=== PATIENT | female | born 1975 | race Caucasian/White ===

== ENCOUNTER 2017-07-23 10:05 | Emergency (ER) | payer MEDICARE, MEDICAID ==
[2017-07-23] MEDS ORDERED: SULFAMETHOXAZOLE/TRIMETHOPRIM 800-160 MG TABLET PO ONE (10:25)
--- NOTE | 2017-07-23 10:37 | ER Document Report ---
HPI - HPI Patient complains to provider of: Abscess Quality of pain: Achy Pain Level: 2 Context: Patient complains of an abscess to the left lower abdominal area for the past 4 days. Patient states area opened up and started to drain a few days ago. Patient denies any fever. Patient denies any history of MRSA Associated Symptoms: denies: Fever, Nausea Exacerbated by: Denies Relieved by: Denies Similar symptoms previously: No Recently seen / treated by doctor: No - ROS ROS below otherwise negative: Yes Systems Reviewed and Negative: Yes All other systems reviewed and negative - CONSTITUTIONAL Constitutional: DENIES: Fever, Chills - REPRODUCTIVE Reproductive: DENIES: : - DERM Notes: Abdominal abscess Past Medical History - General Information source: Patient - Social History Smoking Status: Current Every Day Smoker Frequency of alcohol use: None Drug Abuse: None Occupation: None Lives with: Family Family History: None - Past Medical History Cardiac Medical History: Reports: Hx Hypertension Endocrine Medical History: Reports: Hx Diabetes Mellitus Type 2 GI Medical History: Reports: Hx Gastroesophageal Reflux Disease Psychiatric Medical History: Reports: Hx Anxiety, Hx Depression Past Surgical History: Reports: Hx Section, Hx Hysterectomy, Hx Tubal Ligation - Immunizations Hx Diphtheria, Pertussis, Tetanus Vaccination: Yes Vertical Provider Document - CONSTITUTIONAL Agree With Documented VS: Yes Exam Limitations: No Limitations General Appearance: WD/WN, No Apparent Distress - INFECTION CONTROL TRAVEL OUTSIDE OF THE [place] IN LAST 30 DAYS: No - HEENT HEENT: Atraumatic, Normocephalic - NECK Neck: Normal Inspection - RESPIRATORY Respiratory: Breath Sounds Normal, No Respiratory Distress O2 Sat by Pulse Oximetry: 96 - CARDIOVASCULAR Cardiovascular: Regular Rate, Regular Rhythm - MUSCULOSKELETAL/EXTREMETIES Musculoskeletal/Extremeties: MAEW - NEURO Level of Consciousness: Awake, Alert, Appropriate Motor/Sensory: No Motor Deficit - DERM Integumentary: Warm, Abscess - Open abscess to the left lower abdomen, purulent drainage noted to dressing, wound measures 2 x 5 cm, no surrounding erythema Course - Vital Signs Vital signs: Temp Pulse Resp BP Pulse Ox 98.6 F 94 20 146/70 H 96 07/23/17 10:14 07/23/17 10:14 07/23/17 10:14 07/23/17 10:14 07/23/17 10:14 Discharge - Discharge Clinical Impression: Abdominal abscess Condition: Stable Disposition: HOME, SELF-CARE Instructions: Abscess ([facility]), Dressing Instructions for Open Wounds ([facility]), Trimethoprim-Sulfa ([facility]) Additional Instructions: Return immediately for any new or worsening symptoms Followup with your primary care provider, Dr Waggoner, call tomorrow to make a followup appointment Cleanse wound daily with antibacterial soap and water, keep wound covered as it continues to heal. Wound cultures pending, we will call if you need any different treatment Prescriptions: Sulfamethoxazole/Trimethoprim [Bactrim Ds Tablet] 1 each PO BID #20 tablet
[2017-07-23 11:38] VITALS: BP 137/68
== END 2017-07-23 11:36 | disposition home or self-care (01) ==
LOC: ER 10:05
DX: L02.211 Cutaneous abscess of abdominal wall (principal); F17.200 Nicotine dependence, unspecified, uncomplicated
CPT/HCPCS: 99282; 87070; 87205; 87077; A9270

== ENCOUNTER 2017-09-03 12:12 | Inpatient (IN) | payer MEDICARE, MEDICAID ==
[2017-09-03] MEDS ORDERED: NORMAL SALINE 1000 ML 1,000 ML IV ONE (12:35)
[2017-09-03] MEDS ORDERED: CEFTRIAXONE INJ 1000 MG VIAL IV ONE (12:36)
[2017-09-03] MEDS ORDERED: IPRATROPIUM/ALBUTEROL 0.5-2.5 MG/3 ML AMPUL NEB ONE ×2 (13:02→15:43)
--- NOTE | 2017-09-03 13:06 | ER Document Report ---
ED Respiratory Problem - General Chief Complaint: Breathing Difficulty Stated Complaint: DIFFICULTY BREATHING Time Seen by Provider: 09/03/17 12:35 Mode of Arrival: Medic Information source: Patient Notes: Patient presents complaining of difficulty breathing that worsened today. Patient states that she has had a cough for the past 3 days and saw her primary doctor yesterday and was diagnosed with pneumonia. Patient has had 2 doses of doxycycline. Patient does complain of chest pain but only with coughing. She states cough is only been occasionally productive. TRAVEL OUTSIDE OF THE [place] IN LAST 30 DAYS: No - HPI Patient complains to provider of: Chest pain - With coughing, Cough, Short of breath Onset: Other - 3 days Duration: Worse/persistent Quality of pain: Achy Pain Level: Denies Context: denies: Hx asthma Chest pain/discomfort: Center Cough: Productive - occasionally Associated symptoms: Chest pain/discomfort, Chills, Congestion, Cough, Wheezing Recently seen / treated by doctor: Yes - Related Data Allergies/Adverse Reactions: morphine Allergy (Verified 09/03/17 14:20) Past Medical History - General Information source: Patient - Social History Smoking Status: Current Every Day Smoker Frequency of alcohol use: None Drug Abuse: None Occupation: none Lives with: Family Family History: None - Past Medical History Cardiac Medical History: Reports: Hx Hypertension Endocrine Medical History: Reports: Hx Diabetes Mellitus Type 2 Renal/ Medical History: Denies: Hx Peritoneal Dialysis GI Medical History: Reports: Hx Gastroesophageal Reflux Disease Musculoskeltal Medical History: Reports Hx Arthritis Psychiatric Medical History: Reports: Hx Anxiety, Hx Depression Past Surgical History: Reports: Hx Section, Hx Hysterectomy, Hx Tonsillectomy, Hx Tubal Ligation - Immunizations Hx Diphtheria, Pertussis, Tetanus Vaccination: Yes Review of Systems - Review of Systems Constitutional: Chills, Recent illness - dx with pneumonia EENT: No symptoms reported Cardiovascular: Chest pain - with cough, Dyspnea Respiratory: Cough, Short of breath, Wheezing Gastrointestinal: No symptoms reported. denies: Abdominal pain, Diarrhea, Nausea, Vomiting Genitourinary: No symptoms reported Female Genitourinary: No symptoms reported Musculoskeletal: Back pain - cp radiates to back Skin: No symptoms reported Hematologic/Lymphatic: No symptoms reported Neurological/Psychological: No symptoms reported. denies: Headaches Physical Exam - Vital signs Vitals: Resp Pulse Ox 19 93 09/03/17 12:40 09/03/17 12:40 - General General appearance: Appears well, Alert In distress: Mild - HEENT Head: Normocephalic Eyes: Normal Conjunctiva: Normal Nasal: Normal Mouth/Lips: Normal Mucous membranes: Normal Pharynx: Normal Neck: Normal, Supple. No: Lymphadenopathy - Respiratory Respiratory status: Labored, Tachypnea Chest status: Pain with cough Breath sounds: Nonproductive cough, Rhonchi, Wheezing Chest palpation: Normal - Cardiovascular Rhythm: Tachycardia Heart sounds: S1 appreciated, S2 appreciated Murmur: No - Abdominal Inspection: Morbidly Obese Distension: No distension Tenderness: Nontender - Back Back: Normal, Nontender. No: CVA tenderness - Extremities General upper extremity: Normal inspection, Normal strength General lower extremity: Normal inspection, Normal strength - Neurological Neuro grossly intact: Yes Cognition: Normal Rcista Coma Scale Eye Opening: Spontaneous Crista Coma Scale Verbal: Oriented Crista Coma Scale Motor: Obeys Commands [place] Coma Scale Total: 15 - Psychological Associated symptoms: Normal affect, Normal mood - Skin Skin Temperature: Warm Skin Moisture: Dry Skin Color: Normal Course - Re-evaluation Re-evalutation: 09/03/17 14:38 Patient continues with diffuse bilateral wheezing, patient continues tachycardic , additional nebulizer treatments ordered. 09/03/17 15:44 Patient continues with bilateral wheezing and tachycardic, additional nebulizer treatment ordered. 09/03/17 16:[address] Marroquin who recommends CTA and chest and ordering a repeat troponin. 09/03/17 17:[address] Bland who agrees to come and evaluate patient. 09/03/17 17:44 Dr. Bland advises having patient as a telemetry admission - Vital Signs Vital signs: Temp Pulse Resp BP Pulse Ox 98.9 F 34 H 150/72 H 91 L 09/03/17 14:01 09/03/17 14:01 09/03/17 14:01 09/03/17 14:01 - Laboratory Result Diagrams: 09/03/17 13:03 09/03/17 13:03 Laboratory results interpreted by me: 09/03/17 09/03/17 13:03 13:26 WBC 11.9 H RBC 5.38 H MCV 78 L MCH 25.1 L RDW 16.9 H Plt Count 482 H Seg Neutrophils % 79.9 H Absolute Neutrophils 9.5 H Urine Glucose (UA) >=500 H Ur Leukocyte Esterase SMALL H Labs- Entire Visit 09/03/17 09/03/17 09/03/17 13:03 13:03 13:03 WBC 11.9 H RBC 5.38 H Hgb 13.5 Hct 41.7 MCV 78 L MCH 25.1 L MCHC 32.4 RDW 16.9 H Plt Count 482 H Seg Neutrophils % 79.9 H Lymphocytes % 13.2 Monocytes % 5.5 Eosinophils % 0.7 Basophils % 0.7 Absolute Neutrophils 9.5 H Absolute Lymphocytes 1.6 Absolute Monocytes 0.7 Absolute Eosinophils 0.1 Absolute Basophils 0.1 PT INR D-Dimer VBG pH VBG pCO2 VBG HCO3 VBG Base Excess Sodium 140.7 Potassium 4.7 Chloride 100 Carbon Dioxide 29 Anion Gap 12 BUN 7 Creatinine 0.64 Est GFR ( Amer) > 60 Est GFR (Non-Af Amer) > 60 Glucose 99 Lactic Acid Calcium 9.7 Magnesium Total Bilirubin 0.3 Direct Bilirubin 0.3 Neonat Total Bilirubin Not Reportable Neonat Direct Bilirubin Not Reportable Neonat Indirect Bili Not Reportable AST 17 ALT 26 Alkaline Phosphatase 115 Creatine Kinase 129 CK-MB (CK-2) 1.63 Troponin I < 0.012 NT-Pro-B Natriuret Pep Total Protein 7.0 Albumin 3.9 Urine Color Urine Appearance Urine pH Ur Specific Ten Sleep Urine Protein Urine Glucose (UA) Urine Ketones Urine Blood Urine Nitrite Urine Bilirubin Urine Urobilinogen Ur Leukocyte Esterase Urine WBC (Auto) Urine RBC (Auto) Urine Bacteria (Auto) Squamous Epi Cells Auto Urine Mucus (Auto) Urine Ascorbic Acid 09/03/17 09/03/17 09/03/17 13:03 13:03 13:03 WBC RBC Hgb Hct MCV MCH MCHC RDW Plt Count Seg Neutrophils % Lymphocytes % Monocytes % Eosinophils % Basophils % Absolute Neutrophils Absolute Lymphocytes Absolute Monocytes Absolute Eosinophils Absolute Basophils PT 12.7 INR 0.91 D-Dimer VBG pH 7.38 VBG pCO2 47.6 VBG HCO3 27.7 VBG Base Excess 2.0 Sodium Potassium Chloride Carbon Dioxide Anion Gap BUN Creatinine Est GFR ( Amer) Est GFR (Non-Af Amer) Glucose Lactic Acid 1.3 Calcium Magnesium Total Bilirubin Direct Bilirubin Neonat Total Bilirubin Neonat Direct Bilirubin Neonat Indirect Bili AST ALT Alkaline Phosphatase Creatine Kinase CK-MB (CK-2) Troponin I NT-Pro-B Natriuret Pep Total Protein Albumin Urine Color Urine Appearance Urine pH Ur Specific Ten Sleep Urine Protein Urine Glucose (UA) Urine Ketones Urine Blood Urine Nitrite Urine Bilirubin Urine Urobilinogen Ur Leukocyte Esterase Urine WBC (Auto) Urine RBC (Auto) Urine Bacteria (Auto) Squamous Epi Cells Auto Urine Mucus (Auto) Urine Ascorbic Acid 09/03/17 09/03/17 09/03/17 13:03 13:03 13:26 WBC RBC Hgb Hct MCV MCH MCHC RDW Plt Count Seg Neutrophils % Lymphocytes % Monocytes % Eosinophils % Basophils % Absolute Neutrophils Absolute Lymphocytes Absolute Monocytes Absolute Eosinophils Absolute Basophils PT INR D-Dimer VBG pH VBG pCO2 VBG HCO3 VBG Base Excess Sodium Potassium Chloride Carbon Dioxide Anion Gap BUN Creatinine Est GFR ( Amer) Est GFR (Non-Af Amer) Glucose Lactic Acid Calcium Magnesium 1.7 Total Bilirubin Direct Bilirubin Neonat Total Bilirubin Neonat Direct Bilirubin Neonat Indirect Bili AST ALT Alkaline Phosphatase Creatine Kinase CK-MB (CK-2) Troponin I NT-Pro-B Natriuret Pep < 11 Total Protein Albumin Urine Color STRAW Urine Appearance CLEAR Urine pH 5.0 Ur Specific [place] 1.008 Urine Protein NEGATIVE Urine Glucose (UA) >=500 H Urine Ketones NEGATIVE Urine Blood NEGATIVE Urine Nitrite NEGATIVE Urine Bilirubin NEGATIVE Urine Urobilinogen NEGATIVE Ur Leukocyte Esterase SMALL H Urine WBC (Auto) 1 Urine RBC (Auto) 1 Urine Bacteria (Auto) TRACE Squamous Epi Cells Auto <1 Urine Mucus (Auto) RARE Urine Ascorbic Acid NEGATIVE 09/03/17 14:18 WBC RBC Hgb Hct MCV MCH MCHC RDW Plt Count Seg Neutrophils % Lymphocytes % Monocytes % Eosinophils % Basophils % Absolute Neutrophils Absolute Lymphocytes Absolute Monocytes Absolute Eosinophils Absolute Basophils PT INR D-Dimer 0.27 VBG pH VBG pCO2 VBG HCO3 VBG Base Excess Sodium Potassium Chloride Carbon Dioxide Anion Gap BUN Creatinine Est GFR ( Amer) Est GFR (Non-Af Amer) Glucose Lactic Acid Calcium Magnesium Total Bilirubin Direct Bilirubin Neonat Total Bilirubin Neonat Direct Bilirubin Neonat Indirect Bili AST ALT Alkaline Phosphatase Creatine Kinase CK-MB (CK-2) Troponin I NT-Pro-B Natriuret Pep Total Protein Albumin Urine Color Urine Appearance Urine pH Ur Specific [place] Urine Protein Urine Glucose (UA) Urine Ketones Urine Blood Urine Nitrite Urine Bilirubin Urine Urobilinogen Ur Leukocyte Esterase Urine WBC (Auto) Urine RBC (Auto) Urine Bacteria (Auto) Squamous Epi Cells Auto Urine Mucus (Auto) Urine Ascorbic Acid - Diagnostic Test Radiology reviewed: Reports reviewed Discharge - Discharge Clinical Impression: COPD exacerbation Dyspnea Qualifiers: Dyspnea type: unspecified Qualified Code(s): R06.00 - Dyspnea, unspecified Condition: Fair Disposition: ADMITTED INPATIENT Admitting Provider: Hospitalist Unit Admitted: Telemetry
[2017-09-03 13:28] LABS: ABSOLUTE BASOPHILS # (AUTO) 0.1 10^3/uL (0.0-0.2); ABSOLUTE EOSINOPHILS # (AUTO) 0.1 10^3/uL (0.0-0.6); ABSOLUTE LYMPHOCYTES (AUTO) 1.6 10^3/uL (0.5-4.7); ABSOLUTE MONOCYTES (AUTO) 0.7 10^3/uL (0.1-1.4); ABSOLUTE NEUT (AUTO) 9.5 10^3/uL (1.7-8.2); BASOPHILS % (AUTO) 0.7 % (0-2); EOSINOPHILS % (AUTO) 0.7 % (0-6); HEMATOCRIT 41.7 % (36.0-47.0); HEMOGLOBIN 13.5 g/dL (12.0-15.5); LYMPHOCYTES % (AUTO) 13.2 % (13-45); MEAN CORPUSCULAR HEMOGLOBIN 25.1 pg (27.0-33.4); MEAN CORPUSCULAR HGB CONC 32.4 g/dL (32.0-36.0); MEAN CORPUSCULAR VOLUME 78 fl (80-97); MONOCYTES % (AUTO) 5.5 % (3-13); PLATELET COUNT 482 10^3/uL (150-450); RED BLOOD COUNT 5.38 10^6/uL (3.72-5.28); RED CELL DISTRIBUTION WIDTH 16.9 % (11.5-14.0); SEGMENTED NEUTROPHILS % (AUTO) 79.9 % (42-78); TOTAL CELLS COUNTED % (AUTO) 100 %; VENOUS BLOOD HCO3 27.7 mmol/L (20-32); VENOUS BLOOD PCO2 47.6 mmHg (35-63); VENOUS BLOOD PH 7.38 (7.30-7.42); WHITE BLOOD COUNT 11.9 10^3/uL (4.0-10.5)
[2017-09-03 13:49] LABS: ALANINE AMINOTRANSFERASE 26 U/L (9-52); ALBUMIN 3.9 g/dL (3.5-5.0); ALKALINE PHOSPHATASE 115 U/L (38-126); ANION GAP 12 (5-19); ASPARTATE AMINO TRANSFERASE 17 U/L (14-36); BILIRUBIN,DIRECT 0.3 mg/dL (0.0-0.4); BILIRUBIN,TOTAL 0.3 mg/dL (0.2-1.3); BLOOD UREA NITROGEN 7 mg/dL (7-20); CALCIUM 9.7 mg/dL (8.4-10.2); CARBON DIOXIDE 29 mmol/L (22-30); CHLORIDE 100 mmol/L (98-107); CREATINE KINASE 129 U/L (30-135); GLUCOSE 99 mg/dL (75-110); POTASSIUM 4.7 mmol/L (3.6-5.0); SODIUM 140.7 mmol/L (137-145)
[2017-09-03 13:52] LABS: INTERNATIONAL RATION (INR) 0.91; PROTHROMBIN TIME 12.7 SEC (11.4-15.4)
[2017-09-03 14:03] LABS: CREATINE KINASE MB 1.63 ng/mL (<4.55)
--- NOTE | 2017-09-03 14:03 | RADIOLOGY REPORT (SQ) ---
EXAM DESCRIPTION: CHEST 2 VIEWS COMPLETED DATE/TIME: 09/03/2017 1:50 pm REASON FOR STUDY: cough, cp, recent pneumonia COMPARISON: None. EXAM PARAMETERS: NUMBER OF VIEWS: two views TECHNIQUE: Digital Frontal and Lateral radiographic views of the chest acquired. RADIATION DOSE: NA LIMITATIONS: none FINDINGS: LUNGS AND PLEURA: No opacities, masses or pneumothorax. No pleural effusion. MEDIASTINUM AND HILAR STRUCTURES: No masses or contour abnormalities. HEART AND VASCULAR STRUCTURES: Heart normal size. No evidence for failure. BONES: No acute findings. HARDWARE: Neurostimulator electrodes. OTHER: No other significant finding. IMPRESSION: NO ACUTE RADIOGRAPHIC FINDING IN THE CHEST. TECHNICAL DOCUMENTATION: JOB ID: [id number] [employer]- All Rights Reserved Reading location - IP/workstation name: [email or web address]
[2017-09-03 14:05] LABS: TROPONIN I < 0.012 ng/mL
[2017-09-03 14:12] LABS: APPEARANCE,URINE CLEAR; BILIRUBIN,URINE NEGATIVE (NEGATIVE); COLOR,URINE STRAW; GLUCOSE, URINE >=500 mg/dL (NEGATIVE); KETONES,URINE NEGATIVE (NEGATIVE); LEUKOCYTE ESTERASE,URINE SMALL (NEGATIVE); NITRITE,URINE NEGATIVE (NEGATIVE); PROTEIN,URINE NEGATIVE (NEGATIVE); URINE SPECIFIC GRAVITY 1.008; UROBILINOGEN,URINE NEGATIVE mg/dL (<2.0)
[2017-09-03] MEDS ORDERED: METHYLPREDNISOLONE INJ 125 MG/2 ML SDV IV ONE (14:37)
[2017-09-03] MEDS ORDERED: ALBUTEROL SULFATE 0.083% NEB 2.5 MG/3 ML AMPUL NEB ONE ×2 (14:37→14:38)
--- NOTE | 2017-09-03 16:59 | RADIOLOGY REPORT (SQ) ---
EXAM DESCRIPTION: CTA CHEST COMPLETED DATE/TIME: 09/03/2017 4:45 pm REASON FOR STUDY: SOB COMPARISON: None. TECHNIQUE: CT scan of the chest performed using helical scanning technique with dynamic intravenous contrast injection. Images reviewed with lung, soft tissue and bone windows. Reconstructed coronal and sagittal MPR images reviewed. Additional 3 dimensional post-processing performed to develop Maximal Intensity Projection images (IL P). All images stored on PACS. All CT scanners at this facility use dose modulation, iterative reconstruction, and/or weight based d osing when appropriate to reduce radiation dose to as low as reasonably achievable (ALARA). [facility]: Dose Right [facility]: CareDose [facility]: Dose Right [facility]: Teradose 4D [facility]: HihoCoder CONTRAST TYPE AND DOSE: contrast/concentration: Isovue 370.00 mg/ml; Total Contrast Delivered: 86.0 ml; Total Saline Delivered: 70.0 ml Contrast bolus adequate for pulmonary arteries and aorta. RENAL FUNCTION: BUN 7 creatinine 0.64. RADIATION DOSE: CT Rad equipment meets quality standard of care and radiation dose reduction techniq ues were employed. CTDIvol: 33.1 - 41.8 mGy. DLP: 1600 mGy-cm. . LIMITATIONS: None. FINDINGS: LUNGS AND PLEURA: There are few small nodules in the right lung ranging in size from 4 to 6.5 mm. No infiltrates or pneumothorax. No pleural effusions, calcifications. AORTA AND GREAT VESSELS: No aneurysm. No dissection. HEART: No pericardial effusion. No significant coronary artery calcifications. PULMONARY ARTERIES: No emboli visualized in the main pulmonary arteries or the segmental branches. HILAR AND MEDIASTINAL STRUCTURES: No identified masses or abnormal nodes. HARDWARE: None in the chest. UPPER ABDOMEN: Hepatomegaly with diffuse fatty infiltration. Limited exam. THYROID AND OTHER SOFT TISSUES: No masses. No adenopathy. BONES: No acute or significant finding. 3D MIPS: Confirm above findings. OTHER: No other significant finding. IMPRESSION: 1. NORMAL CTA OF THE CHEST. NO PULMONARY EMBOLI. 2. HEPATOMEGALY WITH DIFFUSE FATTY INFILTRATION. 3. A FEW SMALL LUNG NODULES MEASURING BETWEEN 4 AND 6.5 MM. FOLLOW-UP CLINICALLY INDICATED. COMMENT: [facility] CRITERIA FOR FOLLOW-UP OF PULMONARY NODULES Incidentally detected new nodules in persons 35 or older. HIGH RISK: History of smoking or other known risk factors. 6-8mm multiple solid nodules: LOW RISK: CT 3-6 mo; then consider CT 18-24 mo. HIGH RISK: CT 3-6 mo; t hen CT 18-24 mo. Quality ID # [id number]: Final reports with documentation of one or more dose reduction techniques (e.g., Au tomated exposure control, adjustment of the mA and/or kV according to patient size, use of iterative reconstruction technique) TECHNICAL DOCUMENTATION: JOB ID: [id number] [employer]- All Rights Reserved Reading location - IP/workstation name: [email or web address]
[2017-09-03] MEDS: MAGNESIUM SULFATE/D5W 1 GM/100 ML RTUPB IV SCH ×2 (17:44→18:17)
[2017-09-03] MEDS ORDERED: IPRATROPIUM/ALBUTEROL 0.5-2.5 MG/3 ML AMPUL NEB PRN (18:04)
[2017-09-03] MEDS ORDERED: ACETAMINOPHEN 325 MG TABLET PO PRN (18:04)
[2017-09-03] MEDS ORDERED: ZOLPIDEM TARTRATE 5 MG TABLET PO PRN (18:04)
[2017-09-03] MEDS ORDERED: INSULIN LISPRO 100 UNIT/ML 3 ML VIAL SUBCUT PRN (18:30)
[2017-09-03] MEDS ORDERED: GLUCAGON,HUMAN RECOMB 1 MG INJ IM PRN (18:30)
[2017-09-03] MEDS ORDERED: DEXTROSE 50%-WATER 25 GM/50 ML DISP.SYRIN IV PRN ×2 (18:30)
[2017-09-03] MEDS ORDERED: DEXTROSE 40% GEL 15 GM TUBE PO PRN ×2 (18:30)
--- NOTE | 2017-09-03 18:40 | PDOC H&P ---
History of Present Illness Admission Date/PCP: 09/03/17 17:48 Patient complains of: Short of breath short of breath History of Present Illness: JOSI CHEN is a 41 year old female with about a week of progressive shortness of breath notably worse over the last 3 days. Yesterday she went to an urgent care and was given prescriptions for doxycycline, steroids, and an inhaler. She filled the doxycycline, but was unable to fill the steroids because they required prior authorization, nor the inhaler because they did not have it in stock and she was going to have to come back and pick it up today. She has taken a day of doxycycline without significant effect. If anything, she is worse today. She became so short of breath earlier that she came into the emergency room. She reports bringing up yellow phlegm. She denies fevers or chills. No nausea vomiting or diarrhea. No chest pain. She continues to smoke a pack to a pack and a half a day. Past Medical History Cardiac Medical History: Reports: Hypertension Endocrine Medical History: Reports: Diabetes Mellitus Type 2 GI Medical History: Reports: Gastroesophageal Reflux Disease Musculoskeltal Medical History: Reports: Arthritis Psychiatric Medical History: Reports: Depression Past Surgical History Past Surgical History: Reports: Section, Hysterectomy, Tonsillectomy, Tubal Ligation Social History Lives with: Family Smoking Status: Current Every Day Smoker Frequency of Alcohol Use: Rare Hx Recreational Drug Use: No - Advance Directive Resuscitation Status: Full Code Surrogate healthcare decision maker:: Sister Family History Family History: None Parental Family History Reviewed: Yes Children Family History Reviewed: Yes Sibling(s) Family History Reviewed.: No Medication/Allergy Allergies/Adverse Reactions: morphine Allergy (Verified 09/03/17 14:20) Review of Systems All systems: reviewed and no additional remarkable complaints except as stated Physical Exam Vital Signs: Temp Pulse Resp BP Pulse Ox 98.9 F 34 H 150/72 H 91 L 09/03/17 14:01 09/03/17 14:01 09/03/17 14:01 09/03/17 14:01 General appearance: PRESENT: mild distress, morbidly obese Respiratory exam: PRESENT: decreased breath sounds, prolonged expiratory phas, tachypnea, wheezes - Expiratory bilaterally. ABSENT: rhonchi Cardiovascular exam: PRESENT: tachycardia GI/Abdominal exam: PRESENT: soft Extremities exam: PRESENT: other - No edema Musculoskeletal exam: PRESENT: normal inspection Neurological exam: PRESENT: alert Psychiatric exam: PRESENT: appropriate affect Skin exam: PRESENT: warm. ABSENT: dry Results Impressions: Chest X-Ray 09/03/17 12:35 IMPRESSION: NO ACUTE RADIOGRAPHIC FINDING IN THE CHEST. Chest/Abdomen CTA 09/03/17 16:07 IMPRESSION: 1. NORMAL CTA OF THE CHEST. NO PULMONARY EMBOLI. 2. HEPATOMEGALY WITH DIFFUSE FATTY INFILTRATION. 3. A FEW SMALL LUNG NODULES MEASURING BETWEEN 4 AND 6.5 MM. FOLLOW-UP CLINICALLY INDICATED. Assessment & Plan - Diagnosis (1) COPD exacerbation Is this a current diagnosis for this admission?: Yes Plan: Treat with steroids, nebulizers, wean oxygen as tolerated. Empiric antibiotics. (2) Cigarette smoker Is this a current diagnosis for this admission?: Yes Plan: Strongly counseled (3) DM hyperosmolarity type II Is this a current diagnosis for this admission?: No Plan: She lists this as something she has but she does not take any medications for it. I will follow her blood sugars and cover with sliding scale insulin. I get an A1c in the morning (4) HTN (hypertension) Is this a current diagnosis for this admission?: No Plan: Again she lists this as something she has, but does not take any medications for it. Monitor. (5) Morbid obesity Is this a current diagnosis for this admission?: Yes Plan: Greatly increases her work of breathing. We discussed the relationship between her weight and her health issues.
[2017-09-03] MEDS ORDERED: NICOTINE 21 MG/24 HR PATCH.TD24 TD ONE (19:30)
[2017-09-03] MEDS: AZITHROMYCIN 500 MG in DEXTROSE 5%-WATER 250 ML IV SCH (19:49)
[2017-09-03] MEDS: IPRATROPIUM/ALBUTEROL 0.5-2.5 MG/3 ML AMPUL NEB SCH (19:49)
[2017-09-03] MEDS ORDERED: AZITHROMYCIN INJ 500 MG VIAL IV SCH (20:00)
--- NOTE | 2017-09-03 21:26 | EKG REPORT ---
SEVERITY:- BORDERLINE ECG - SINUS TACHYCARDIA BORDERLINE LEFT AXIS DEVIATION BORDERLINE T ABNORMALITIES, ANT-LAT LEADS : Confirmed by: Pool Murcia 03-Sep-2017 21:25:57
[2017-09-03] MEDS: FAMOTIDINE 20 MG TABLET PO SCH (22:55)
[2017-09-04] MEDS: IPRATROPIUM/ALBUTEROL 0.5-2.5 MG/3 ML AMPUL NEB SCH ×3 (08:43→20:19)
[2017-09-04] MEDS: FAMOTIDINE 20 MG TABLET PO SCH ×2 (10:28→23:09)
[2017-09-04] MEDS: PREDNISONE 20 MG TABLET PO SCH (10:29)
[2017-09-04] MEDS: POLYETHYLENE GLYCOL 3350 POWDER 17 GM/1 PACKET PO SCH (10:31)
[2017-09-04] MEDS: ENOXAPARIN SODIUM INJ 40 MG/0.4 ML DISP.SYRIN SUBCUT SCH (10:31)
[2017-09-04] MEDS ORDERED: (PENDING PHARMACY ID) (Apremilast [Otezla] 30 MG) PO SCH (11:15)
[2017-09-04] MEDS ORDERED: (PENDING PHARMACY ID) (Canagliflozin [Invokana] 300 MG) PO SCH (11:15)
[2017-09-04] MEDS ORDERED: TAPENTADOL HCL 100 MG PO SCH (11:15)
[2017-09-04] MEDS ORDERED: ARIPIPRAZOLE 5 MG PO SCH (11:15)
[2017-09-04] MEDS ORDERED: (PENDING PHARMACY ID) (Gabapentin Enacarbil [Horizant] 300 MG) PO SCH (11:15)
[2017-09-04] MEDS ORDERED: (PENDING PHARMACY ID) (Oxycodone Hcl/Acetaminophen [Endocet 7.5-325 Mg Tablet] 1 TAB) PO SCH (11:15)
[2017-09-04] MEDS ORDERED: (PENDING PHARMACY ID) (Pravastatin Sodium [Pravachol] 40 MG) PO SCH (11:15)
[2017-09-04] MEDS ORDERED: (PENDING PHARMACY ID) (Potassium Chloride [K-Tab Er] 20 MEQ) PO SCH (11:15)
[2017-09-04] MEDS ORDERED: (PENDING PHARMACY ID) (Diclofenac Sodium [Voltaren] 4 GM) TOP SCH (12:00)
[2017-09-04] MEDS ORDERED: CEFTRIAXONE 1 GM/D5W RTU 1 GM/50 ML RTUPB IV SCH (12:00)
--- NOTE | 2017-09-04 12:02 | PDOC PROGRESS REPORT ---
Subjective Progress Note for:: 09/04/17 Subjective:: Reports feeling all better. Wanted to go home. Room air sats at rest were 85% Reason For Visit: ACUTE HYPOXEMIC RESP FAILURE, COPD EXAC Physical Exam Vital Signs: Temp Pulse Resp BP Pulse Ox 98.1 F 92 14 129/65 H 100 09/04/17 07:24 09/04/17 08:43 09/04/17 08:43 09/04/17 07:24 09/04/17 07:24 Intake & Output 09/03/17 09/04/17 09/05/17 06:59 06:59 06:59 Intake Total 242 Output Total 0 Balance 242 Weight 149.5 kg General appearance: PRESENT: no acute distress, cooperative, morbidly obese Respiratory exam: PRESENT: clear to auscultation adan, decreased breath sounds Cardiovascular exam: PRESENT: RRR GI/Abdominal exam: PRESENT: soft Neurological exam: PRESENT: alert, oriented to person, oriented to place, oriented to time, oriented to situation Psychiatric exam: PRESENT: appropriate affect Skin exam: PRESENT: dry, warm Results Impressions: Chest X-Ray 09/03/17 12:35 IMPRESSION: NO ACUTE RADIOGRAPHIC FINDING IN THE CHEST. Chest/Abdomen CTA 09/03/17 16:07 IMPRESSION: 1. NORMAL CTA OF THE CHEST. NO PULMONARY EMBOLI. 2. HEPATOMEGALY WITH DIFFUSE FATTY INFILTRATION. 3. A FEW SMALL LUNG NODULES MEASURING BETWEEN 4 AND 6.5 MM. FOLLOW-UP CLINICALLY INDICATED. Assessment & Plan - Diagnosis (1) COPD exacerbation Is this a current diagnosis for this admission?: Yes Plan: Treat with steroids, nebulizers, wean oxygen as tolerated. Empiric antibiotics. (2) Cigarette smoker Is this a current diagnosis for this admission?: Yes Plan: Nicotine replacement. Strongly counseled. (3) DM hyperosmolarity type II Is this a current diagnosis for this admission?: No Plan: Resume home medications and cover with sliding scale insulin (4) HTN (hypertension) Is this a current diagnosis for this admission?: No Plan: Continue home medications (5) Morbid obesity Is this a current diagnosis for this admission?: Yes Plan: Greatly increases her work of breathing. We discussed the relationship between her weight and her health issues.
[2017-09-04] MEDS: CEFTRIAXONE SODIUM 1,000 MG in DEXTROSE 5%-WATER 50 ML IV SCH (12:50)
[2017-09-04] MEDS ORDERED: METFORMIN HCL 500 MG TABLET PO ONE (13:00)
[2017-09-04] MEDS ORDERED: DULOXETINE HCL 30 MG CAPSULE.DR PO ONE (13:00)
[2017-09-04] MEDS ORDERED: ARIPIPRAZOLE 5 MG TABLET PO ONE (13:00)
[2017-09-04] MEDS ORDERED: CARVEDILOL 3.125 MG TABLET PO ONE (13:30)
[2017-09-04] MEDS ORDERED: FUROSEMIDE 40 MG TABLET PO ONE (13:30)
[2017-09-04] MEDS ORDERED: OXYCODONE-ACETAMINOPHEN 5-325 MG TABLET PO ONE (13:30)
[2017-09-04] MEDS ORDERED: OXYCODONE HCL IR 5 MG TABLET PO ONE (13:30)
[2017-09-04] MEDS ORDERED: POTASSIUM CHLORIDE 10 MEQ TABLET.SA PO ONE (13:30)
[2017-09-04] MEDS ORDERED: LANSOPRAZOLE 30 MG TAB.RAP.DR PO ONE (13:30)
[2017-09-04] MEDS ORDERED: GABAPENTIN 100 MG CAPSULE PO ONE (15:30)
[2017-09-04] MEDS: AZITHROMYCIN 500 MG in DEXTROSE 5%-WATER 250 ML IV SCH (21:39)
[2017-09-04] MEDS: OXYCODONE HCL IR 5 MG TABLET PO SCH (23:06)
[2017-09-04] MEDS: OXYCODONE-ACETAMINOPHEN 5-325 MG TABLET PO SCH (23:08)
[2017-09-04] MEDS: DULOXETINE HCL 30 MG CAPSULE.DR PO SCH (23:09)
[2017-09-04] MEDS: GABAPENTIN 100 MG CAPSULE PO SCH (23:10)
[2017-09-04] MEDS: ARIPIPRAZOLE 5 MG TABLET PO SCH (23:10)
[2017-09-04] MEDS: CARVEDILOL 3.125 MG TABLET PO SCH (23:11)
[2017-09-05] MEDS: LANSOPRAZOLE 30 MG TAB.RAP.DR PO SCH (06:38)
[2017-09-05] MEDS: GABAPENTIN 100 MG CAPSULE PO SCH ×3 (06:38→21:25)
[2017-09-05] MEDS: IPRATROPIUM/ALBUTEROL 0.5-2.5 MG/3 ML AMPUL NEB SCH ×3 (08:09→20:14)
[2017-09-05] MEDS: OXYCODONE HCL IR 5 MG TABLET PO SCH ×2 (09:51→21:24)
[2017-09-05] MEDS: POTASSIUM CHLORIDE 10 MEQ TABLET.SA PO SCH (09:52)
[2017-09-05] MEDS: DULOXETINE HCL 30 MG CAPSULE.DR PO SCH ×2 (09:52→21:22)
[2017-09-05] MEDS: FUROSEMIDE 40 MG TABLET PO SCH (09:53)
[2017-09-05] MEDS: METFORMIN HCL 500 MG TABLET PO SCH (09:53)
[2017-09-05] MEDS: PREDNISONE 20 MG TABLET PO SCH (09:54)
[2017-09-05] MEDS: ATORVASTATIN CALCIUM 10 MG TABLET PO SCH (09:54)
[2017-09-05] MEDS: FAMOTIDINE 20 MG TABLET PO SCH ×2 (09:54→21:23)
[2017-09-05] MEDS: CARVEDILOL 3.125 MG TABLET PO SCH ×2 (09:55→21:25)
[2017-09-05] MEDS: OXYCODONE-ACETAMINOPHEN 5-325 MG TABLET PO SCH ×2 (09:55→21:23)
[2017-09-05] MEDS: ARIPIPRAZOLE 5 MG TABLET PO SCH ×2 (09:55→21:23)
[2017-09-05] MEDS: POLYETHYLENE GLYCOL 3350 POWDER 17 GM/1 PACKET PO SCH (09:56)
[2017-09-05] MEDS: ENOXAPARIN SODIUM INJ 40 MG/0.4 ML DISP.SYRIN SUBCUT SCH (09:56)
[2017-09-05] MEDS ORDERED: POTASSIUM CHLORIDE 10 MEQ TABLET.SA PO SCH (10:00)
[2017-09-05] MEDS ORDERED: DEXTROSE 40% GEL 15 GM TUBE PO PRN ×2 (11:44)
[2017-09-05] MEDS ORDERED: GLUCAGON,HUMAN RECOMB 1 MG INJ IM PRN (11:44)
[2017-09-05] MEDS ORDERED: INSULIN LISPRO 100 UNIT/ML 3 ML VIAL SUBCUT PRN (11:44)
[2017-09-05] MEDS ORDERED: DEXTROSE 50%-WATER 25 GM/50 ML DISP.SYRIN IV PRN ×2 (11:44)
[2017-09-05] MEDS ORDERED: NICOTINE 21 MG/24 HR PATCH.TD24 TD PRN (11:49)
--- NOTE | 2017-09-05 11:50 | PDOC PROGRESS REPORT ---
Subjective Progress Note for:: 09/05/17 Subjective:: 41-year-old female with past medical history of hypertension Diabetes Gastroesophageal reflux disease Tobacco dependence Arthritis Depression Morbid obesity Chronic pain, opiate dependent Hyperlipidemia She presented to the hospital on September 03 with a week of progressively worsening shortness of breath cough with yellow expectoration. She smokes a pack and a half per day. This morning she complains of continued cough and dyspnea on exertion with chest congestion and inability to cough up her phlegm. Room air sats were in the 80s at rest and dropped into the 70s with exertion. Reason For Visit: ACUTE HYPOXEMIC RESP FAILURE, COPD EXAC Physical Exam Vital Signs: Temp Pulse Resp BP Pulse Ox 97.7 F 87 16 126/68 H 96 09/05/17 07:21 09/05/17 08:09 09/05/17 08:09 09/05/17 07:21 09/05/17 07:21 Intake & Output 09/04/17 09/05/17 09/06/17 06:59 06:59 06:59 Intake Total 242 1662 Output Total 0 0 Balance 242 1662 Weight 149.5 kg 150.9 kg General appearance: PRESENT: morbidly obese Head exam: PRESENT: normocephalic Eye exam: PRESENT: PERRLA. ABSENT: scleral icterus Ear exam: PRESENT: normal external ear exam Mouth exam: PRESENT: moist Neck exam: ABSENT: tracheal deviation Respiratory exam: PRESENT: rhonchi, symmetrical, wheezes Cardiovascular exam: PRESENT: RRR GI/Abdominal exam: PRESENT: normal bowel sounds, soft. ABSENT: tenderness Rectal exam: PRESENT: deferred Extremities exam: ABSENT: pedal edema Neurological exam: PRESENT: alert, awake, oriented to person, oriented to place , oriented to time Psychiatric exam: PRESENT: appropriate affect Skin exam: ABSENT: petechiae Results Impressions: Chest X-Ray 09/03/17 12:35 IMPRESSION: NO ACUTE RADIOGRAPHIC FINDING IN THE CHEST. Chest/Abdomen CTA 09/03/17 16:07 IMPRESSION: 1. NORMAL CTA OF THE CHEST. NO PULMONARY EMBOLI. 2. HEPATOMEGALY WITH DIFFUSE FATTY INFILTRATION. 3. A FEW SMALL LUNG NODULES MEASURING BETWEEN 4 AND 6.5 MM. FOLLOW-UP CLINICALLY INDICATED. Assessment & Plan - Diagnosis (1) Acute respiratory failure with hypoxia Is this a current diagnosis for this admission?: Yes Plan: Due to COPD exacerbation (2) Chronic pain Is this a current diagnosis for this admission?: Yes Plan: Continue outpatient medications including Cymbalta and Nucynta and acetaminophen with oxycodone as needed. (3) Type 2 diabetes mellitus Qualifiers: Diabetes mellitus fdc insulin use: without fdc use Is this a current diagnosis for this admission?: Yes Plan: Continue outpatient medications. Insulin sliding scale. (4) Hyperlipidemia Qualifiers: Hyperlipidemia type: unspecified Qualified Code(s): E78.5 - Hyperlipidemia , unspecified Is this a current diagnosis for this admission?: Yes Plan: Continue statin. (5) COPD exacerbation Is this a current diagnosis for this admission?: Yes Plan: IV steroids antibiotics nebulizer treatment supplemental oxygen mucolytics. (6) Cigarette smoker Is this a current diagnosis for this admission?: Yes Plan: Nicotine patch. (7) HTN (hypertension) Is this a current diagnosis for this admission?: Yes Plan: Continue Coreg. (8) Morbid obesity Is this a current diagnosis for this admission?: Yes - Time Time Spent with patient: 35 or more minutes
[2017-09-05] MEDS ORDERED: LACTOBACILLUS ACIDOPHILUS 250 MG TAB PO ONE (12:00)
[2017-09-05] MEDS ORDERED: GUAIFENESIN 600 MG TABLET.SA PO ONE (12:00)
[2017-09-05] MEDS ORDERED: METHYLPREDNISOLONE INJ 40 MG/1 ML SDV IV ONE (12:30)
[2017-09-05] MEDS: CEFTRIAXONE SODIUM 1,000 MG in DEXTROSE 5%-WATER 50 ML IV SCH (12:38)
[2017-09-05] MEDS: LACTOBACILLUS ACIDOPHILUS 250 MG TAB PO SCH (17:26)
[2017-09-05] MEDS: AZITHROMYCIN 500 MG in DEXTROSE 5%-WATER 250 ML IV SCH (20:42)
[2017-09-05] MEDS: GUAIFENESIN 600 MG TABLET.SA PO SCH (21:23)
[2017-09-05] MEDS: METHYLPREDNISOLONE INJ 40 MG/1 ML SDV IV SCH (21:25)
[2017-09-06 06:13] LABS: ANION GAP 10 (5-19); BLOOD UREA NITROGEN 20 mg/dL (7-20); CALCIUM 9.5 mg/dL (8.4-10.2); CARBON DIOXIDE 30 mmol/L (22-30); CHLORIDE 103 mmol/L (98-107); GLUCOSE 134 mg/dL (75-110); PHOSPHORUS 5.3 mg/dL (2.5-4.5); POTASSIUM 4.8 mmol/L (3.6-5.0); SODIUM 143.2 mmol/L (137-145)
[2017-09-06] MEDS: METHYLPREDNISOLONE INJ 40 MG/1 ML SDV IV SCH ×3 (06:31→22:00)
[2017-09-06] MEDS: GABAPENTIN 100 MG CAPSULE PO SCH ×3 (06:31→21:57)
[2017-09-06] MEDS: LANSOPRAZOLE 30 MG TAB.RAP.DR PO SCH (06:31)
[2017-09-06] MEDS: IPRATROPIUM/ALBUTEROL 0.5-2.5 MG/3 ML AMPUL NEB SCH ×3 (08:03→21:11)
[2017-09-06] MEDS: OXYCODONE HCL IR 5 MG TABLET PO SCH ×2 (09:26→21:58)
[2017-09-06] MEDS: LACTOBACILLUS ACIDOPHILUS 250 MG TAB PO SCH ×2 (09:27→19:28)
[2017-09-06] MEDS: GUAIFENESIN 600 MG TABLET.SA PO SCH ×2 (09:27→21:57)
[2017-09-06] MEDS: DULOXETINE HCL 30 MG CAPSULE.DR PO SCH ×2 (09:27→21:56)
[2017-09-06] MEDS: ARIPIPRAZOLE 5 MG TABLET PO SCH ×2 (09:27→21:59)
[2017-09-06] MEDS: POTASSIUM CHLORIDE 10 MEQ TABLET.SA PO SCH (09:27)
[2017-09-06] MEDS: OXYCODONE-ACETAMINOPHEN 5-325 MG TABLET PO SCH ×2 (09:28→21:59)
[2017-09-06] MEDS: ATORVASTATIN CALCIUM 10 MG TABLET PO SCH (09:28)
[2017-09-06] MEDS: FAMOTIDINE 20 MG TABLET PO SCH ×2 (09:28→21:57)
[2017-09-06] MEDS: METFORMIN HCL 500 MG TABLET PO SCH (09:28)
[2017-09-06] MEDS: FUROSEMIDE 40 MG TABLET PO SCH (09:28)
[2017-09-06] MEDS: CARVEDILOL 3.125 MG TABLET PO SCH ×2 (09:28→21:58)
[2017-09-06] MEDS: POLYETHYLENE GLYCOL 3350 POWDER 17 GM/1 PACKET PO SCH (09:29)
[2017-09-06] MEDS: ENOXAPARIN SODIUM INJ 40 MG/0.4 ML DISP.SYRIN SUBCUT SCH (09:29)
[2017-09-06] MEDS: CEFTRIAXONE SODIUM 1,000 MG in DEXTROSE 5%-WATER 50 ML IV SCH (12:53)
--- NOTE | 2017-09-06 16:45 | PDOC PROGRESS REPORT ---
Subjective Progress Note for:: 09/06/17 Subjective:: 41-year-old female with past medical history of hypertension Diabetes Gastroesophageal reflux disease Tobacco dependence Arthritis Depression Morbid obesity Chronic pain, opiate dependent Hyperlipidemia She presented to the hospital on September 03 with a week of progressively worsening shortness of breath cough with yellow expectoration. She smokes a pack and a half per day. This morning she complains of continued cough and dyspnea on exertion with chest congestion and inability to cough up her phlegm. Room air sats dropped into the 80s with exertion. Continues to cough and experience dyspnea Reason For Visit: ACUTE HYPOXEMIC RESP FAILURE, COPD EXAC Physical Exam Vital Signs: Temp Pulse Resp BP Pulse Ox 97.9 F 72 15 123/63 95 09/06/17 15:53 09/06/17 15:53 09/06/17 15:53 09/06/17 15:53 09/06/17 15:53 Intake & Output 09/05/17 09/06/17 09/07/17 06:59 06:59 06:59 Intake Total 1662 1956 794 Output Total 0 0 Balance 1662 1957 794 Weight 150.9 kg 151.9 kg General appearance: PRESENT: morbidly obese Head exam: PRESENT: normocephalic Eye exam: ABSENT: scleral icterus Ear exam: PRESENT: normal external ear exam Mouth exam: PRESENT: moist Neck exam: ABSENT: tenderness Respiratory exam: PRESENT: symmetrical, wheezes Cardiovascular exam: PRESENT: RRR GI/Abdominal exam: PRESENT: normal bowel sounds, soft. ABSENT: tenderness Rectal exam: PRESENT: deferred Extremities exam: ABSENT: calf tenderness, pedal edema Musculoskeletal exam: PRESENT: normal inspection Neurological exam: PRESENT: alert, awake, oriented to person, oriented to place , oriented to time Psychiatric exam: PRESENT: appropriate affect Skin exam: ABSENT: petechiae Results Laboratory Results: 09/06/17 05:35 09/06/17 09/06/17 05:35 05:35 Sodium 143.2 Potassium 4.8 Chloride 103 Carbon Dioxide 30 Anion Gap 10 BUN 20 Creatinine 0.62 Est GFR ( Amer) > 60 Est GFR (Non-Af Amer) > 60 Glucose 134 H Calcium 9.5 Phosphorus 5.3 H Magnesium 2.4 H TSH 1.05 Impressions: Chest X-Ray 09/03/17 12:35 IMPRESSION: NO ACUTE RADIOGRAPHIC FINDING IN THE CHEST. Chest/Abdomen CTA 09/03/17 16:07 IMPRESSION: 1. NORMAL CTA OF THE CHEST. NO PULMONARY EMBOLI. 2. HEPATOMEGALY WITH DIFFUSE FATTY INFILTRATION. 3. A FEW SMALL LUNG NODULES MEASURING BETWEEN 4 AND 6.5 MM. FOLLOW-UP CLINICALLY INDICATED. Assessment & Plan - Diagnosis (1) Acute respiratory failure with hypoxia Is this a current diagnosis for this admission?: Yes Plan: Due to COPD exacerbation (2) Chronic pain Is this a current diagnosis for this admission?: Yes Plan: Continue outpatient medications including Cymbalta and Nucynta and acetaminophen with oxycodone as needed. (3) Type 2 diabetes mellitus Qualifiers: Diabetes mellitus terminal superintendent insulin use: without terminal superintendent use Is this a current diagnosis for this admission?: Yes Plan: Continue outpatient medications. Insulin sliding scale. (4) Hyperlipidemia Qualifiers: Hyperlipidemia type: unspecified Qualified Code(s): E78.5 - Hyperlipidemia , unspecified Is this a current diagnosis for this admission?: Yes Plan: Continue statin. (5) COPD exacerbation Is this a current diagnosis for this admission?: Yes Plan: IV steroids antibiotics nebulizer treatment supplemental oxygen mucolytics. (6) Cigarette smoker Is this a current diagnosis for this admission?: Yes Plan: Nicotine patch. (7) HTN (hypertension) Is this a current diagnosis for this admission?: Yes Plan: Continue Coreg. (8) Morbid obesity Is this a current diagnosis for this admission?: Yes - Time Time Spent with patient: 35 or more minutes
[2017-09-06] MEDS: FLUTICASONE/SALMETEROL DISKUS 250-50 MCG/DOSE IH SCH (21:54)
[2017-09-07] MEDS: GABAPENTIN 100 MG CAPSULE PO SCH (05:34)
[2017-09-07] MEDS: LANSOPRAZOLE 30 MG TAB.RAP.DR PO SCH (05:35)
[2017-09-07] MEDS: METHYLPREDNISOLONE INJ 40 MG/1 ML SDV IV SCH (05:35)
[2017-09-07 06:33] LABS: ANION GAP 10 (5-19); BLOOD UREA NITROGEN 20 mg/dL (7-20); CALCIUM 9.6 mg/dL (8.4-10.2); CARBON DIOXIDE 32 mmol/L (22-30); CHLORIDE 100 mmol/L (98-107); GLUCOSE 134 mg/dL (75-110); PHOSPHORUS 5.2 mg/dL (2.5-4.5); POTASSIUM 4.5 mmol/L (3.6-5.0); SODIUM 142.3 mmol/L (137-145)
--- NOTE | 2017-09-07 08:34 | RADIOLOGY REPORT (SQ) ---
EXAM DESCRIPTION: CHEST 2 VIEWS COMPLETED DATE/TIME: 09/07/2017 7:37 am REASON FOR STUDY: Dyspnea COMPARISON: Two-view chest 09/03/2017 CT chest 09/03/2017 EXAM PARAMETERS: NUMBER OF VIEWS: two views TECHNIQUE: Digital Frontal and Lateral radiographic views of the chest acquired. RADIATION DOSE: NA LIMITATIONS: none FINDINGS: LUNGS AND PLEURA: No opacities, masses or pneumothorax. No pleural effusion. MEDIASTINUM AND HILAR STRUCTURES: No masses or contour abnormalities. HEART AND VASCULAR STRUCTURES: Heart normal size. No evidence for failure. BONES: No acute findings. HARDWARE: Electrode leads over the mid thoracic spine. OTHER: No other significant finding. IMPRESSION: NO ACUTE RADIOGRAPHIC FINDING IN THE CHEST. TECHNICAL DOCUMENTATION: JOB ID: [id number] [employer]- All Rights Reserved Reading location - IP/workstation name: [email or web address]
[2017-09-07] MEDS: IPRATROPIUM/ALBUTEROL 0.5-2.5 MG/3 ML AMPUL NEB SCH (08:58)
[2017-09-07] MEDS: ENOXAPARIN SODIUM INJ 40 MG/0.4 ML DISP.SYRIN SUBCUT SCH (09:59)
[2017-09-07] MEDS: OXYCODONE-ACETAMINOPHEN 5-325 MG TABLET PO SCH (10:00)
[2017-09-07] MEDS: FUROSEMIDE 40 MG TABLET PO SCH (10:00)
[2017-09-07] MEDS: GUAIFENESIN 600 MG TABLET.SA PO SCH (10:01)
[2017-09-07] MEDS: FAMOTIDINE 20 MG TABLET PO SCH (10:01)
[2017-09-07] MEDS: METFORMIN HCL 500 MG TABLET PO SCH (10:01)
[2017-09-07] MEDS: ARIPIPRAZOLE 5 MG TABLET PO SCH (10:01)
[2017-09-07] MEDS: LACTOBACILLUS ACIDOPHILUS 250 MG TAB PO SCH (10:01)
[2017-09-07] MEDS: OXYCODONE HCL IR 5 MG TABLET PO SCH (10:02)
[2017-09-07] MEDS: CARVEDILOL 3.125 MG TABLET PO SCH (10:02)
[2017-09-07] MEDS: DULOXETINE HCL 30 MG CAPSULE.DR PO SCH (10:02)
[2017-09-07] MEDS: POTASSIUM CHLORIDE 10 MEQ TABLET.SA PO SCH (10:03)
[2017-09-07] MEDS: POLYETHYLENE GLYCOL 3350 POWDER 17 GM/1 PACKET PO SCH (10:03)
[2017-09-07] MEDS: FLUTICASONE/SALMETEROL DISKUS 250-50 MCG/DOSE IH SCH (10:03)
[2017-09-07 13:23] VITALS: BP 132/68
[2017-09-07] MEDS ORDERED: HYDROMORPHONE HCL INJ/PF 2 MG/ML AMPULE IV PRN (13:42)
--- NOTE | 2017-09-07 14:05 | PDOC DISCHARGE SUMMARY ---
General - Admit/Disc Date/PCP Admission Date/Primary Care Provider: 09/03/17 17:48 Discharge Date: 09/07/17 - Discharge Diagnosis (1) Acute respiratory failure with hypoxia Is this a current diagnosis for this admission?: Yes Summary: Due to COPD exacerbation (2) Chronic pain Is this a current diagnosis for this admission?: Yes (3) Type 2 diabetes mellitus Is this a current diagnosis for this admission?: Yes (4) Hyperlipidemia Is this a current diagnosis for this admission?: Yes (5) COPD exacerbation Is this a current diagnosis for this admission?: Yes (6) Cigarette smoker Is this a current diagnosis for this admission?: Yes (7) HTN (hypertension) Is this a current diagnosis for this admission?: Yes (8) Morbid obesity Is this a current diagnosis for this admission?: Yes - Additional Information Resuscitation Status: Full Code Discharge Diet: As Tolerated Discharge Activity: Activity As Tolerated Prescriptions: Albuterol Sulfate [Ventolin Hfa] 1 - 2 puff IH Q4 PRN #1 hfa.aer.ad PRN Reason: Famotidine [Pepcid 20 mg Tablet] 20 mg PO Q12 7 Days #14 tablet Fluticasone/Salmeterol [Advair 250-50 Diskus 14 Dose/Diskus] 1 inh IH Q12 30 Days #1 inhaler Nicotine [Nicoderm 21 mg/24 Hr Transderm Patch] 1 each TD DAILYP PRN 30 Days # 30 patch PRN Reason: Prednisone 60 mg PO DAILY #26 tablet Home Medications: Apremilast [Otezla] 30 mg PO BID 09/03/17 Aripiprazole [Abilify 10 mg Tablet] 5 mg PO Q12 09/03/17 Canagliflozin [Invokana] 300 mg PO DAILY 09/03/17 Carvedilol [Coreg 3.125 mg Tablet] 3.125 mg PO Q12 09/03/17 Dexlansoprazole [Dexilant 60 mg Capsule] 60 mg PO DAILY 09/03/17 Diclofenac Sodium [Voltaren] 4 gm TOP Q6 09/03/17 Duloxetine HCl [Cymbalta] 60 mg PO Q12 09/03/17 Furosemide [Lasix 40 mg Tablet] 40 mg PO DAILY 09/03/17 Gabapentin Enacarbil [Horizant] 300 mg PO Q12 09/03/17 Metformin HCl [Glucophage 500 mg Tablet] 500 mg PO DAILY 09/03/17 Oxycodone HCl/Acetaminophen [Endocet 7.5-325 mg Tablet] 1 tab PO Q12 09/03/17 Potassium Chloride [K-Tab ER] 20 meq PO DAILY 09/03/17 Pravastatin Sodium [Pravachol] 40 mg PO DAILY 09/03/17 Tapentadol HCl [Nucynta ER] 100 mg PO DAILY 09/03/17 Albuterol Sulfate [Ventolin Hfa] 1 - 2 puff IH Q4 PRN #1 hfa.aer.ad 09/04/17 Famotidine [Pepcid 20 mg Tablet] 20 mg PO Q12 7 Days #14 tablet 09/07/17 Fluticasone/Salmeterol [Advair 250-50 Diskus 14 Dose/Diskus] 1 inh IH Q12 30 Days #1 inhaler 09/07/17 Lactobacillus Acidophilus [Bacid 250 mg Tablet] 500 mg PO BID 7 Days tab Nicotine [Nicoderm 21 mg/24 Hr Transderm Patch] 1 each TD DAILYP PRN 30 Days # 30 patch 09/07/17 Prednisone 60 mg PO DAILY #26 tablet 09/07/17 History of Present Illness History of Present Illness: 41-year-old female with past medical history of hypertension Diabetes Gastroesophageal reflux disease Tobacco dependence Arthritis Depression Morbid obesity Chronic pain, opiate dependent Hyperlipidemia She presented to the hospital on September 03 with a week of progressively worsening shortness of breath cough with yellow expectoration. She smokes a pack and a half per day. The patient ambulated without oxygen today and her sats stayed above 92%. Chest x-ray done this morning did not show any infiltrate or pleural effusion. She is stable for discharge home. She was given a prescription for prednisone taper, Pepcid for 7 days, probiotic and Advair. She is to follow-up with her primary care physician in 1 week. Hospital Course Hospital Course: As above Physical Exam Vital Signs: Temp Pulse Resp BP Pulse Ox 98.2 F 82 20 132/68 H 93 09/07/17 11:39 09/07/17 11:39 09/07/17 11:39 09/07/17 11:39 09/07/17 11:39 Intake & Output 09/06/17 09/07/17 09/08/17 06:59 06:59 06:59 Intake Total 1956 2291 342 Output Total 0 Balance 1956 2291 342 Weight 151.9 kg 151 kg General appearance: PRESENT: morbidly obese Head exam: PRESENT: normocephalic Respiratory exam: PRESENT: rhonchi, symmetrical, unlabored Results Laboratory Results: 09/07/17 05:15 09/07/17 05:15 Sodium 142.3 Potassium 4.5 Chloride 100 Carbon Dioxide 32 H Anion Gap 10 BUN 20 Creatinine 0.62 Est GFR ( Amer) > 60 Est GFR (Non-Af Amer) > 60 Glucose 134 H Calcium 9.6 Phosphorus 5.2 H Magnesium 2.4 H 09/07/17 05:15 NT-Pro-B Natriuret Pep 73 Impressions: Chest/Abdomen CTA 09/03/17 16:07 IMPRESSION: 1. NORMAL CTA OF THE CHEST. NO PULMONARY EMBOLI. 2. HEPATOMEGALY WITH DIFFUSE FATTY INFILTRATION. 3. A FEW SMALL LUNG NODULES MEASURING BETWEEN 4 AND 6.5 MM. FOLLOW-UP CLINICALLY INDICATED. Chest X-Ray 09/07/17 07:00 IMPRESSION: NO ACUTE RADIOGRAPHIC FINDING IN THE CHEST. Qualifiers - * PATEINT BEING DISCHARGED WITH ANY OF THE FOLLOWING DIAGNOSIS?: No Plan Time Spent: Greater than 30 Minutes
[2017-09-07] MEDS ORDERED: ATORVASTATIN CALCIUM 10 MG TABLET PO SCH (22:00)
== END 2017-09-07 14:49 | disposition home or self-care (01) | DRG 190 ==
LOC: ER 12:12 → EH 17:48 → 3W 21:02
PROVIDERS: ADMIT Internal Medicine; ATTEND Internal Medicine
PROC: 5A09457 Assistance with Respiratory Ventilation, 24-96 Consecutive Hours, Continuous Positive Airway Pressure (ICD-10-PCS; principal; 2017-09-03)
PROC: 3E0F73Z Introduction of Anti-inflammatory into Respiratory Tract, Via Natural or Artificial Opening (ICD-10-PCS; 2017-09-03)
DX: J44.1 Chronic obstructive pulmonary disease with (acute) exacerbation (principal); E11.00 Type 2 diabetes mellitus with hyperosmolarity without nonketotic hyperglycemic-hyperosmolar coma (NKHHC); J96.01 Acute respiratory failure with hypoxia; Z68.43 Body mass index [BMI] 50.0-59.9, adult; G89.29 Other chronic pain; E78.00 Pure hypercholesterolemia, unspecified; I10 Essential (primary) hypertension; E66.01 Morbid (severe) obesity due to excess calories; K21.9 Gastro-esophageal reflux disease without esophagitis; M19.90 Unspecified osteoarthritis, unspecified site; F32.9 Major depressive disorder, single episode, unspecified; F17.210 Nicotine dependence, cigarettes, uncomplicated; F41.9 Anxiety disorder, unspecified; Z79.891 Long term (current) use of opiate analgesic; Z79.899 Other long term (current) drug therapy; Z90.710 Acquired absence of both cervix and uterus; Z88.6 Allergy status to analgesic agent
CPT/HCPCS: 36415; 71046; 71275; 80048; 80053; 81001; 81025; 82550; 82553; 82803; 82962; 83036; 83605; 83735; 83880; 84100; 84443; 84484; 85025; 85379; 85610; 87040; 87086; 93005; 93010; 94640; 94660; 96365; 96375; 99285; J0456; J0696; J1650; J1815; J2920; J2930; J3475; J3490; J7030; J7060; J7512; J7620

== ENCOUNTER 2017-09-16 14:21 | Emergency (ER) | payer MEDICARE, MEDICAID ==
--- NOTE | 2017-09-16 15:07 | ER Document Report ---
ED Medical Screen (RME) - General Chief Complaint: Arm Pain Stated Complaint: SWOLLEN IV SITE Time Seen by Provider: 09/16/17 14:57 Notes: RAPID MEDICAL EVALUATION DISCLOSURE I have seen this patient as part of a Rapid Medical Evaluation and, if applicable, placed any initially appropriate orders. The patient will be seen and fully evaluated, including a full history and physical exam, by a provider ( in Main ED or Fast Track) when a room becomes available. 41-year-old female here with complaints of right upper extremity swelling that started approximately 5 days ago. Specifically, she reports that her upper forearm started swelling first and then it has "spread" down the forearm and that at least half of the forearm is swollen. It was not until several days after onset, that she started to have some mild redness. Of note, she was seen here recently and had an IV in place last Wednesday (approximately 9 days ago) however he did not have any issues in the days following IV removal. Denies prior history of DVT. Denies chest pain shortness of breath. Denies history of MRSA. EXAM There is mild to moderate TTP of right proximal forearm There is mild erythema of right proximal forearm There is mild swelling of the right proximal forearm Strength 5/5 with intact sensation RUE TRAVEL OUTSIDE OF THE [place] IN LAST 30 DAYS: No - Related Data Allergies/Adverse Reactions: morphine Allergy (Verified 09/03/17 14:20) Past Medical History - Social History Frequency of alcohol use: None Drug Abuse: None - Past Medical History Cardiac Medical History: Reports: Hx Hypertension Pulmonary Medical History: Reports: Hx COPD Endocrine Medical History: Reports: Hx Diabetes Mellitus Type 2 Renal/ Medical History: Denies: Hx Peritoneal Dialysis GI Medical History: Reports: Hx Gastroesophageal Reflux Disease Musculoskeltal Medical History: Reports Hx Arthritis Psychiatric Medical History: Reports: Hx Anxiety, Hx Depression Past Surgical History: Reports: Hx Section, Hx Hysterectomy, Hx Tonsillectomy, Hx Tubal Ligation - Immunizations Hx Diphtheria, Pertussis, Tetanus Vaccination: Yes History of Influenza Vaccine for 02/2017 - 07/2017 Season: Yes Influenza Administration Date for 02/2017 - 07/2017 Season: 02/14/18 Physical Exam - Vital signs Vitals: Temp Pulse Resp BP Pulse Ox 98.6 F 116 H 20 137/76 H 95 09/16/17 14:28 09/16/17 14:28 09/16/17 14:28 09/16/17 14:28 09/16/17 14:28 Course - Vital Signs Vital signs: Temp Pulse Resp BP Pulse Ox 98.6 F 116 H 20 137/76 H 95 09/16/17 14:28 09/16/17 14:28 09/16/17 14:28 09/16/17 14:28 09/16/17 14:28
[2017-09-16 16:04] LABS: ABSOLUTE BASOPHILS # (AUTO) 0.1 10^3/uL (0.0-0.2); ABSOLUTE EOSINOPHILS # (AUTO) 0.1 10^3/uL (0.0-0.6); ABSOLUTE LYMPHOCYTES (AUTO) 4.2 10^3/uL (0.5-4.7); ABSOLUTE MONOCYTES (AUTO) 0.8 10^3/uL (0.1-1.4); ABSOLUTE NEUT (AUTO) 14.5 10^3/uL (1.7-8.2); BASOPHILS % (AUTO) 0.5 % (0-2); EOSINOPHILS % (AUTO) 0.5 % (0-6); HEMATOCRIT 43.2 % (36.0-47.0); HEMOGLOBIN 13.7 g/dL (12.0-15.5); LYMPHOCYTES % (AUTO) 21.4 % (13-45); MEAN CORPUSCULAR HGB CONC 31.8 g/dL (32.0-36.0); MEAN CORPUSCULAR VOLUME 79 fl (80-97); MONOCYTES % (AUTO) 4.2 % (3-13); PLATELET COUNT 457 10^3/uL (150-450); RED CELL DISTRIBUTION WIDTH 16.6 % (11.5-14.0); SEGMENTED NEUTROPHILS % (AUTO) 73.4 % (42-78); TOTAL CELLS COUNTED % (AUTO) 100 %; WHITE BLOOD COUNT 19.7 10^3/uL (4.0-10.5)
[2017-09-16 16:22] LABS: ANION GAP 14 (5-19); BLOOD UREA NITROGEN 15 mg/dL (7-20); CALCIUM 9.8 mg/dL (8.4-10.2); CARBON DIOXIDE 27 mmol/L (22-30); CHLORIDE 100 mmol/L (98-107); GLUCOSE 130 mg/dL (75-110); POTASSIUM 4.2 mmol/L (3.6-5.0)
--- NOTE | 2017-09-16 16:37 | RADIOLOGY REPORT (SQ) ---
EXAM DESCRIPTION: VENOUS UNILATERAL UPPER COMPLETED DATE/TIME: 09/16/2017 4:22 pm REASON FOR STUDY: RUE SWELLING COMPARISON: CT chest 420 CT TECHNIQUE: Dynamic and static arteaga scale and color images acquired of the right arm venous system. S elected spectral images acquired with additional compression and augmentation maneuvers. The contrala teral subclavian vein and internal jugular vein were also imaged. Images stored on PACS. LIMITATIONS: None. FINDINGS: RIGHT INTERNAL JUGULAR VEIN: Normal phasicity, compression, augmentation. No visualized echogenic material on arteaga scale. No defects on color images. Comparison opposite side normal. SUBCLAVIAN VEIN: Normal compression, augmentation. No visualized echogenic material on arteaga scale. No defects on color images. AXILLARY VEIN: Normal compression, augmentation. No visualized echogenic material on arteaga scale. No d efects on color images. BRACHIAL VEIN: Normal compression, augmentation. No visualized echogenic material on arteaga scale. No d efects on color images. BASILIC VEIN: Normal compression, augmentation. No visualized echogenic material on arteaga scale. No de fects on color images. CEPHALIC VEIN: Short segment of thrombus in the right cephalic vein in the forearm, at an old IV site . Remainder of the cephalic vein is otherwise unremarkable OTHER: No other significant finding. LEFT SUBCLAVIAN VEIN AND INTERNAL JUGULAR VEIN: Normal phasicity, compression and augmentation. No visualized echogenic material on arteaga scale. No de fects on color images. IMPRESSION: Short segment of thrombophlebitis in the right forearm cephalic vein at the level of liliana or IV. TECHNICAL DOCUMENTATION: JOB ID: [id number] [employer]- All Rights Reserved Reading location - IP/workstation name: [email or web address]
--- NOTE | 2017-09-16 16:52 | ER Document Report ---
ED General - General Chief Complaint: Arm Pain Stated Complaint: SWOLLEN IV SITE Time Seen by Provider: 09/16/17 14:57 TRAVEL OUTSIDE OF THE [place] IN LAST 30 DAYS: No - HPI Patient complains to provider of: Right arm pain swelling Notes: Patient coming in for evaluation of right arm swelling. Patient was recently hospitalized patient states that the site of the IV now is became red and painful. Patient denies any fever chills nausea vomiting diarrhea. Patient resting company upon my evaluation. - Related Data Allergies/Adverse Reactions: morphine Allergy (Verified 09/03/17 14:20) Past Medical History - Social History Smoking Status: Former Smoker Frequency of alcohol use: None Drug Abuse: None Family History: None Patient has suicidal ideation: No Patient has homicidal ideation: No - Past Medical History Cardiac Medical History: Reports: Hx Hypertension Pulmonary Medical History: Reports: Hx COPD Endocrine Medical History: Reports: Hx Diabetes Mellitus Type 2 Renal/ Medical History: Denies: Hx Peritoneal Dialysis GI Medical History: Reports: Hx Gastroesophageal Reflux Disease Musculoskeltal Medical History: Reports Hx Arthritis Psychiatric Medical History: Reports: Hx Anxiety, Hx Depression Past Surgical History: Reports: Hx Section, Hx Hysterectomy, Hx Tonsillectomy, Hx Tubal Ligation - Immunizations Hx Diphtheria, Pertussis, Tetanus Vaccination: Yes Review of Systems - Review of Systems Constitutional: No symptoms reported EENT: No symptoms reported Cardiovascular: No symptoms reported Respiratory: No symptoms reported Gastrointestinal: No symptoms reported Genitourinary: No symptoms reported Female Genitourinary: No symptoms reported Musculoskeletal: Other - Arm pain Skin: No symptoms reported Hematologic/Lymphatic: No symptoms reported Neurological/Psychological: No symptoms reported -: Yes All other systems reviewed and negative Physical Exam - Vital signs Vitals: Temp Pulse Resp BP Pulse Ox 98.6 F 116 H 20 137/76 H 95 09/16/17 14:28 09/16/17 14:28 09/16/17 14:28 09/16/17 14:28 09/16/17 14:28 Interpretation: Normal - General General appearance: Appears well, Alert - HEENT Head: Normocephalic, Atraumatic Eyes: Normal Pupils: PERRL - Respiratory Respiratory status: No respiratory distress Chest status: Nontender Breath sounds: Normal Chest palpation: Normal - Cardiovascular Rhythm: Regular Heart sounds: Normal auscultation Murmur: No - Abdominal Inspection: Normal Distension: No distension Bowel sounds: Normal Tenderness: Nontender Organomegaly: No organomegaly - Back Back: Normal, Nontender - Extremities General upper extremity: Nontender, Normal color, Normal ROM, Normal temperature. No: Normal inspection - Patient has a small area just distal to the inferior fossa or an IV site was placed with some erythema and a small little nodule consistent with superficial phlebitis. General lower extremity: Normal inspection, Nontender, Normal color, Normal ROM , Normal temperature, Normal weight bearing. No: Tiera's sign - Neurological Neuro grossly intact: Yes Cognition: Normal Orientation: AAOx4 Crista Coma Scale Eye Opening: Spontaneous [place] Coma Scale Verbal: Oriented [place] Coma Scale Motor: Obeys Commands Crista Coma Scale Total: 15 Speech: Normal Motor strength normal: LUE, RUE, LLE, RLE Sensory: Normal - Psychological Associated symptoms: Normal affect, Normal mood - Skin Skin Temperature: Warm Skin Moisture: Dry Skin Color: Normal Course - Re-evaluation Re-evalutation: 09/16/17 19:18 Patient's lab work did show leukocytosis patient states recently just stopped taking steroids. No fever do not think patient has underlying cellulitis the some discomfort superficial thrombophlebitis. Patient was encouraged to treat with anti-inflammatories and warm compresses states understanding will be discharged home. - Vital Signs Vital signs: Temp Pulse Resp BP Pulse Ox 98.6 F 103 H 14 140/74 H 99 09/16/17 17:09 09/16/17 17:09 09/16/17 17:09 09/16/17 17:09 09/16/17 17:09 - Laboratory Result Diagrams: 09/16/17 15:30 09/16/17 15:30 Laboratory results interpreted by me: 09/16/17 09/16/17 15:30 15:30 WBC 19.7 H RBC 5.50 H MCV 79 L MCH 25.0 L MCHC 31.8 L RDW 16.6 H Plt Count 457 H Absolute Neutrophils 14.5 H Glucose 130 H Discharge - Discharge Clinical Impression: Superficial thrombophlebitis Qualifiers: Superficial thrombophlebitis-Involved body area: upper extremity Laterality: right Qualified Code(s): I80.8 - Phlebitis and thrombophlebitis of other sites Condition: Good Disposition: HOME, SELF-CARE Instructions: Superficial Phlebitis ([facility]) Additional Instructions: Follow-up with your primary care physician. Continue with anti-inflammatory medication may also take Tylenol for pain control. Return to ER symptoms worsen. Prescriptions: Ibuprofen [Motrin 600 Mg Tablet] 600 mg PO TID #30 tablet Referrals: MALI CARLOS MD [Primary Care Provider] - Follow up as needed
[2017-09-16 17:12] VITALS: BP 140/74
== END 2017-09-16 17:13 | disposition home or self-care (01) ==
LOC: ER 14:21
DX: I80.8 Phlebitis and thrombophlebitis of other sites (principal); M79.601 Pain in right arm; I10 Essential (primary) hypertension; E11.9 Type 2 diabetes mellitus without complications; J44.9 Chronic obstructive pulmonary disease, unspecified; Z90.710 Acquired absence of both cervix and uterus
CPT/HCPCS: 36415; 80048; 85025; 87040; 93971; 99284

== ENCOUNTER → 2017-12-31 | Outpatient (CLI) | payer MEDICARE ==
[2017-12-31 12:17] LABS: ABSOLUTE EOSINOPHILS # (AUTO) 0.1 10^3/uL (0.0-0.6); ABSOLUTE LYMPHOCYTES (AUTO) 2.9 10^3/uL (0.5-4.7); ABSOLUTE MONOCYTES (AUTO) 0.5 10^3/uL (0.1-1.4); ABSOLUTE NEUT (AUTO) 6.9 10^3/uL (1.7-8.2); BASOPHILS % (AUTO) 0.4 % (0-2); EOSINOPHILS % (AUTO) 0.7 % (0-6); HEMATOCRIT 39.4 % (36.0-47.0); HEMOGLOBIN 13.1 g/dL (12.0-15.5); LYMPHOCYTES % (AUTO) 27.4 % (13-45); MEAN CORPUSCULAR HEMOGLOBIN 25.9 pg (27.0-33.4); MEAN CORPUSCULAR HGB CONC 33.2 g/dL (32.0-36.0); MEAN CORPUSCULAR VOLUME 78 fl (80-97); MONOCYTES % (AUTO) 4.8 % (3-13); PLATELET COUNT 487 10^3/uL (150-450); RED BLOOD COUNT 5.04 10^6/uL (3.72-5.28); RED CELL DISTRIBUTION WIDTH 17.9 % (11.5-14.0); SEGMENTED NEUTROPHILS % (AUTO) 66.7 % (42-78); TOTAL CELLS COUNTED % (AUTO) 100 %; WHITE BLOOD COUNT 10.4 10^3/uL (4.0-10.5)
[2017-12-31 13:17] LABS: ALANINE AMINOTRANSFERASE 25 U/L (9-52); ALBUMIN 3.9 g/dL (3.5-5.0); ALKALINE PHOSPHATASE 102 U/L (38-126); ANION GAP 12 (5-19); ASPARTATE AMINO TRANSFERASE 18 U/L (14-36); BILIRUBIN,DIRECT 0.3 mg/dL (0.0-0.4); BILIRUBIN,TOTAL 0.3 mg/dL (0.2-1.3); BLOOD UREA NITROGEN 10 mg/dL (7-20); CALCIUM 9.4 mg/dL (8.4-10.2); CARBON DIOXIDE 31 mmol/L (22-30); CHLORIDE 99 mmol/L (98-107); GLUCOSE 119 mg/dL (75-110); POTASSIUM 4.6 mmol/L (3.6-5.0); SODIUM 141.8 mmol/L (137-145); TOTAL PROTEIN 7.4 g/dL (6.3-8.2)
== END ==
LOC: OD 11:23
PROVIDERS: ATTEND Physician Assistant
DX: Z11.2 Encounter for screening for other bacterial diseases (principal); I10 Essential (primary) hypertension
CPT/HCPCS: 36415; 80053; 85025; 87070

== ENCOUNTER → 2018-03-17 | Outpatient (CLI) | payer MEDICARE, MEDICAID ==
--- NOTE | 2018-03-17 12:28 | EKG REPORT ---
SEVERITY:- ABNORMAL ECG - SINUS RHYTHM FIRST DEGREE AV BLOCK BORDERLINE LEFT AXIS DEVIATION : Confirmed by: Denise Pedersen MD 17-Mar-2018 12:27:58
[2018-03-17 13:14] LABS: ABSOLUTE BASOPHILS # (AUTO) 0.1 10^3/uL (0.0-0.2); ABSOLUTE EOSINOPHILS # (AUTO) 0.1 10^3/uL (0.0-0.6); ABSOLUTE LYMPHOCYTES (AUTO) 3.4 10^3/uL (0.5-4.7); ABSOLUTE MONOCYTES (AUTO) 0.5 10^3/uL (0.1-1.4); ABSOLUTE NEUT (AUTO) 8.6 10^3/uL (1.7-8.2); BASOPHILS % (AUTO) 0.8 % (0-2); EOSINOPHILS % (AUTO) 0.9 % (0-6); HEMATOCRIT 41.1 % (36.0-47.0); HEMOGLOBIN 13.1 g/dL (12.0-15.5); MEAN CORPUSCULAR HEMOGLOBIN 24.8 pg (27.0-33.4); MEAN CORPUSCULAR VOLUME 78 fl (80-97); MONOCYTES % (AUTO) 4.1 % (3-13); PLATELET COUNT 518 10^3/uL (150-450); RED CELL DISTRIBUTION WIDTH 16.5 % (11.5-14.0); SEGMENTED NEUTROPHILS % (AUTO) 67.2 % (42-78); TOTAL CELLS COUNTED % (AUTO) 100 %; WHITE BLOOD COUNT 12.7 10^3/uL (4.0-10.5)
[2018-03-17 13:44] LABS: ALANINE AMINOTRANSFERASE 20 U/L (9-52); ALBUMIN 3.8 g/dL (3.5-5.0); ALKALINE PHOSPHATASE 126 U/L (38-126); ANION GAP 12 (5-19); ASPARTATE AMINO TRANSFERASE 26 U/L (14-36); BILIRUBIN,DIRECT 0.2 mg/dL (0.0-0.4); BILIRUBIN,TOTAL 0.3 mg/dL (0.2-1.3); BLOOD UREA NITROGEN 5 mg/dL (7-20); CALCIUM 9.4 mg/dL (8.4-10.2); CARBON DIOXIDE 30 mmol/L (22-30); CHLORIDE 97 mmol/L (98-107); GLUCOSE 99 mg/dL (75-110); POTASSIUM 5.3 mmol/L (3.6-5.0); SODIUM 138.7 mmol/L (137-145); TOTAL PROTEIN 7.2 g/dL (6.3-8.2)
== END ==
LOC: OD 11:51
PROVIDERS: ATTEND Orthopaedic Surgery
DX: I10 Essential (primary) hypertension (principal); Z11.2 Encounter for screening for other bacterial diseases
CPT/HCPCS: 36415; 80053; 85025; 87070; 93005; 93010